=== PATIENT | female | born 1965 | race Caucasian/White ===

== ENCOUNTER 2020-09-28 12:12 | Emergency (ER) | payer SELFPAY ==
[~2020-09-28] VITALS: Ht 167.6 cm; Wt 112.0 kg
[2020-09-28] MEDS ORDERED: METFORMIN500 M2 PO (12:29)
[2020-09-28] MEDS ORDERED: CELEXA20 M1 PO (12:30)
[2020-09-28 13:28] VITALS: BP 135/76
== END 2020-09-28 13:31 | disposition home or self-care (01) | DRG 605 ==
LOC: ED 12:12
DX: S80.12XA Contusion of left lower leg, initial encounter (principal); E11.9 Type 2 diabetes mellitus without complications; F41.9 Anxiety disorder, unspecified; W03.XXXA Other fall on same level due to collision with another person, initial encounter; Y93.89 Activity, other specified; Y92.009 Unspecified place in unspecified non-institutional (private) residence as the place of occurrence of the external cause; Z79.84 Long term (current) use of oral hypoglycemic drugs